=== PATIENT | male | born 1965 | race Asian ===

== ENCOUNTER 2019-05-11 12:04 | Inpatient (IN) | payer OTHER ==
[2019-05-11 12:25] LABS: ABS Eosinophils 0.1 10^3/ul (0-0.6); ABS Lymphocytes 2.3 10^3/ul (1.0-4.8); ABS Monocytes 0.5 10^3/ul (0-0.8); ABS Neutrophils 8.7 10^3/ul (1.5-7.7); Hematocrit 43 % (42-52); Hemoglobin 14.1 g/dL (14.0-18.0); Lymphocyte % 19.8 %; Mean Corpuscular HGB Conc 33 g/dL (31-36); Mean Corpuscular Hemoglobin 30 pg (27-31); Mean Corpuscular Volume 90 fL (80-94); Platelet Count 224 10^3/uL (150-450); Red Blood Count 4.74 10^6 /uL (4.18-5.48); Red Cell Distribution Width 13 % (10-15); White Blood Count 11.6 10^3/uL (3.5-10.8)
--- NOTE | 2019-05-11 12:30 | ED ---
HPI Chest Pain - HPI Summary HPI Summary: This patient is a 54 year old M presenting to ED with a chief complaint of midsternal chest pain that radiates to the back since last night. Patient is slight short of breath, but denies nausea, vomiting, diaphoresis, diarrhea, constipation, past medical history of heart problems, or any recent travel. The patient rates the pain 2/10 in severity. Symptoms aggravated by nothing. Symptoms alleviated by nothing. On initial exam, patient states he does not smoke tobacco. Home Medications Medication Instructions Recorded Confirmed Type Sildenafil Citrate [Viagra] 100 mg PO DAILY 09/21/16 09/28/16 History - History of Current Complaint Chief Complaint: EDChestPainROMI Time Seen by Provider: 05/11/19 12:13 Hx Obtained From: Patient Onset/Duration: Started Hours Ago - Since last night, Still Present Timing: Constant, Lasting Hours - Since last night Initial Severity: Moderate Current Severity: Moderate Pain Intensity: 2 Pain Scale Used: 0-10 Numeric Chest Pain Location: Mid Sternal Chest Pain Radiates: Yes Chest Pain Radiates To:: Back Aggravating Factor(s): Nothing Alleviating Factor(s): Nothing Associated Signs and Symptoms: Positive: Negative - Diarrhea, constipation, Chest Pain, Shortness of Breath. Negative: Diaphoresis, Nausea, Vomiting - Allergy/Home Medications Allergies/Adverse Reactions: Allergies Allergy/AdvReac Type Severity Reaction Status Date / Time No Known Allergies Allergy Verified 05/11/19 12:11 Home Medications: Home Medications NK [No Home Medications Reported] 05/11/19 [History Confirmed 05/11/19] PMH/Surg Hx/FS Hx/Imm Hx Cardiovascular History: Denies: Hx Congenital Heart Disease, Hx Congestive Heart Failure, Hx Coronary Artery Disease History: Reports: Other Problems/Disorders - Erectile dysfunction - Surgical History Surgery Procedure, Year, and Place: Left tympanoplasty with temporalis fascia underlay medial graft. 01/06/02 at [facility] [place]. Infectious Disease History: No Infectious Disease History: Denies: Traveled Outside the [place] in Last 30 Days - Family History Known Family History: Negative: Cardiac Disease, Hypertension, Diabetes - Social History Alcohol Use: None Hx Substance Use: No Substance Use Type: Reports: None Hx Tobacco Use: Yes Smoking Status (MU): Current Some Day Smoker Review of Systems Negative: Skin Diaphoresis Positive: Chest Pain Positive: Shortness Of Breath - Mild Gastrointestinal: Negative - Constipation Negative: Vomiting, Diarrhea, Nausea All Other Systems Reviewed And Are Negative: Yes Physical Exam - Summary Physical Exam Summary: VITAL SIGNS: Reviewed. GENERAL: Patient is a thin male who is lying comfortable in the stretcher. Patient is not in any acute respiratory distress. HEAD AND FACE: No signs of trauma. No ecchymosis, hematomas or skull depressions. No sinus tenderness. EYES: PERRLA, EOMI x 2, No injected conjunctiva, no nystagmus. EARS: Hearing grossly intact. Ear canals and tympanic membranes are within normal limits. MOUTH: Oropharynx within normal limits. NECK: Supple, trachea is midline, no adenopathy, no JVD, no carotid bruit, no c- spine tenderness, neck with full ROM. CHEST: Symmetric, no tenderness at palpation. LUNGS: Clear to auscultation bilaterally. No wheezing or crackles. CVS: Regular rate and rhythm, S1 and S2 present, no murmurs or gallops appreciated. ABDOMEN: Soft, non-tender. No signs of distention. No rebound, no guarding, and no masses palpated. Bowel sounds are normal. EXTREMITIES: FROM in all major joints, no edema, no cyanosis or clubbing. NEURO: Alert and oriented x 3. No acute neurological deficits. Speech is normal and follows commands. SKIN: Dry and warm. Triage Information Reviewed: Yes Vital Signs On Initial Exam: Initial Vitals Temp Pulse Resp BP Pulse Ox 98.0 F 81 18 120/71 97 05/11/19 12:09 05/11/19 12:09 05/11/19 12:09 05/11/19 12:09 05/11/19 12:09 Vital Signs Reviewed: Yes Procedures - Sedation Patient Received Moderate/Deep Sedation with Procedure: No Diagnostics - Vital Signs Vital Signs Temp Pulse Resp BP Pulse Ox 05/11/19 12:09 98.0 F 81 18 120/71 97 - Laboratory Result Diagrams: 05/12/19 05:45 05/12/19 05:45 Lab Statement: Any lab studies that have been ordered have been reviewed, and results considered in the medical decision making process. - Radiology CXR Radiology Interpretation Completed By: Radiologist Summary of Radiographic Findings: No acute cardiopulmonary process by radiograph. Dr. Portillo has reviewed this radiology report. - EKG 1206 Cardiac Rate: NL - 80 BPM EKG Rhythm: Sinus Rhythm Summary of EKG Findings: An EKG at 1206 revealed NSR at 80 BPM, slight ST elevations in II and aVF. Q waves in II, III, aVF. ST depressions in V2-V5. STEMI. Dr. Portillo has reviewed and interpreted this EKG. NOTE: EKG was taken at 1206 not 1106 as indicated on the EKG printout which is incorrect as the EKG machine was not yet adjusted to accomodate daylight savings time adjustment from last night. 1254 Cardiac Rate: NL - 77 BPM EKG Rhythm: Sinus Rhythm Summary of EKG Findings: An EKG at 1254 revealed NSR at 77 BPM, ST elevations in II, III, and aVF without reciprocal changes. STEMI. Dr. Portillo has reviewed and interpeted this EKG. NOTE: EKG was taken at 1254 not 1154 as indicated on the EKG printout which is incorrect as the EKG machine was not yet adjusted to accomodate daylight savings time adjustment from last night. Re-Evaluation - Re-Evaluation First Eval Re-Evaluation Time: 12:54 Comment: STEMI called at 1254. Second Eval Re-Evaluation Time: 13:01 Comment: Discussed results with patient. Patient agrees to go to [facility] with Dr. Hernandez. Patient states his last Viagra was one month ago and now reports that he is a smoker. Third Eval Re-Evaluation Time: 13:15 Comment: Evaluated patient with Dr. Hernandez at bedside. Patient taken up to [facility]. Chest Pain Course/Dx - Course Assessment/Plan: This patient is a 54 year old M presenting to ED with a chief complaint of midsternal chest pain that radiates to the back since last night. Patient is slight short of breath, but denies nausea, vomiting, diaphoresis, diarrhea, constipation, past medical history of heart problems, or any recent travel. The patient rates the pain 2/10 in severity. Symptoms aggravated by nothing. Symptoms alleviated by nothing. On the initial exam, patient states he does not smoke tobacco. In the ED course the patient was placed in a radiation monitor, IV access was obtained, IV fluids started. He was given Aspirin for the CP. Past medical records reviewed. 1st EKG at 12:06: Sinus rhythm with Q waves in lead II, II and AVF. It seems that it also has minimal ST elevations in the same leads. Patient report slight pain 2/10. Denies any diaphoresis, nausea or vomiting. He seems very comfortable. Blood test w/o a significant abnormality except for WBCs 11.6, glucose 164, AST is 148, total CPK 2330, CK- MB 294, and troponin 11.47. I paged Dr. Herrera cardiology director international. He reports the EKG is border line however troponin is positive therefore he recommends calling STEMI. The patient was given brilinta, heparin, and nitroglycerin. Patient reports that the last time he took Viagra was 1 month ago. Repeated a second EKG and is unchanged from the previous one. Discussed the case with Dr. Hernandez and he will be taking the patient to the [facility]. Patient is hemodynamically stable. He is complaining of mild chest heaviness. - Chest Pain Differential Diagnosis/HQI/PQRI: Acute GA, ACS, Angina, CHF, Chest Wall, GI Disease, Lower Respiratory Infection, Pulmonary Edema - Diagnoses Provider Diagnoses: STEMI (ST elevation myocardial infarction) During the Visit The Following Alert/Code Occurred: STEMI - Provider Notifications Discussed Care Of Patient With: Jalen Herrera Time Discussed With Above Provider: 12:49 Instructed by Provider To: Other - Discussed patient case with Dr. Herrera, bandoleer packer, who read the patient's EKG and also called it a STEMI. At 1258, discussed patient case with Dr. Hernandez, interventionalist, who recommended Heparin and Brilinta and stated he will come see the patient in the ER. At 1315 , evaluated patient with Dr. Hernandez at bedside. Patient agrees to go to [facility] for cardiac cath. - Critical Care Time Critical Care Time: 30-74 min - 30 minutes. CCT is EXCLUSIVE of separately billable procedures. Discharge ED - Sign-Out/Discharge Documenting (check all that apply): Patient Departure - Admit - Discharge Plan Condition: Fair Disposition: ADMITTED TO [facility] - Billing Disposition and Condition Condition: FAIR Disposition: Admitted to [facility] - Attestation Statements Document Initiated by Scribe: Yes Documenting Scribe: Adama Zimmerman Provider For Whom Scribe is Documenting (Include Credential): Steven Portillo MD Scribe Attestation: IAdama, scribed for Steven Portillo MD on 05/12/19 at 0716. Scribe Documentation Reviewed: Yes Provider Attestation: The documentation as recorded by the scribe, Adama Zimmerman accurately reflects the service I personally performed and the decisions made by me, Steven Portillo MD Status of Scribe Document: Viewed
[2019-05-11 12:31] LABS: INR 1.07 (0.82-1.09)
[2019-05-11 12:40] LABS: ALT 32 U/L (7-52); AST 148 U/L (13-39); Albumin 4.1 g/dL (3.2-5.2); Albumin/Globulin Ratio 1.3 (1-3); Alkaline Phosphatase 84 U/L (34-104); Anion Gap 4 mmol/L (2-11); BUN/Creatinine Ratio 18.3 (8-20); Blood Urea Nitrogen 15 mg/dL (6-24); CO2 Carbon Dioxide 29 mmol/L (22-32); Chloride 102 mmol/L (101-111); EGFR African American 117.6 (>60); EGFR Non-African American 97.2 (>60); Globulin 3.1 g/dL (2-4); Glucose 164 mg/dL (70-100); Potassium 3.6 mmol/L (3.5-5.0); Sodium 135 mmol/L (135-145); Total Protein 7.2 g/dL (6.4-8.9)
[2019-05-11 12:44] LABS: CKMB ng/mL 294.3 ng/mL (0.6-6.3)
[2019-05-11 12:46] LABS: Troponin I 11.47 ng/mL (<0.03)
[2019-05-11] MEDS ORDERED: Aspirin 81 mg CHEW TAB* 81 MG TAB.CHEW PO ONE (12:47)
[2019-05-11] MEDS ORDERED: Heparin for STEMI(*) 5,000 UNITS/ML 1 ML VIAL IV ONE (12:56)
[2019-05-11] MEDS ORDERED: Ticagrelor* 90 MG TAB PO ONE (12:56)
[2019-05-11] MEDS ORDERED: NS 0.9% 1000 ML** 1,000 ML IV ONE (13:02)
[2019-05-11 13:06] LABS: Creatine Kinase 2330 U/L (10-223)
[2019-05-11] MEDS ORDERED: Nitroglycerin TAB 0.4 MG* 0.4 MG TAB ONE (13:06)
[2019-05-11] MEDS ORDERED: Nitroglycerin TAB 0.4 MG* 0.4 MG TAB SL ONE (13:08)
[2019-05-11] MEDS ORDERED: VERAPAMIL 2.5 MG/ML 2 ML VIAL ** 5 mg/2 ml ONE (13:22)
[2019-05-11] MEDS ORDERED: Heparin(*) 1000 UNIT/ML 10 ML VIAL CATH LAB IV ONE (13:22)
[2019-05-11] MEDS ORDERED: Heparin 2 UNITS/ML IVPREMIX* 2,000 ML IV ONE (13:23)
[2019-05-11] MEDS ORDERED: Lidocaine 1% INJ* 10 MG/ML 30 ML SDV ONE (13:23)
[2019-05-11] MEDS ORDERED: nitroGLYCERIN DRIP* 25,000 MCG/250 ML BTL ONE (13:23)
[2019-05-11] MEDS ORDERED: Iohexol 350 (CONTRAST) 200 ML MDV IV ONE ×2 (13:24→14:17)
[2019-05-11] MEDS ORDERED: fentaNYL* 50 MCG/ML 2 ML VIAL (100 MCG VIAL) ONE (13:34)
[2019-05-11] MEDS ORDERED: Midazolam* 1 MG/ML 5 ML VIAL (5 MG) ONE (13:35)
[2019-05-11] MEDS ORDERED: Bivalirudin(*) 250 MG VIAL ONE (13:55)
[2019-05-11] MEDS ORDERED: Norepinephrine VIAL* 1 MG/ML 4 ML VIAL ONE (14:17)
[2019-05-11] MEDS ORDERED: Acetaminophen TAB* 325 MG PO PRN (14:46)
[2019-05-11] MEDS ORDERED: Zolpidem TAB* 5 MG PO PRN (14:46)
[2019-05-11] MEDS ORDERED: Docusate CAP* 100 MG PO PRN (14:46)
[2019-05-11] MEDS ORDERED: Ondansetron INJ* 2 MG/ML VIAL IV PRN (14:46)
[2019-05-11] MEDS ORDERED: Nitroglycerin TAB 0.4 MG* 0.4 MG TAB SL PRN (14:46)
[2019-05-11] MEDS ORDERED: Atorvastatin* 80 MG TAB PO ONE (14:53)
[2019-05-11] MEDS ORDERED: NS 0.9% 1000 ML** 1,000 ML IV SCH (15:00)
[2019-05-11] MEDS ORDERED: Atorvastatin* 80 MG TAB ONE (15:07)
--- NOTE | 2019-05-11 16:52 | HP ---
CC: Dr. Anderson Anderson * ADMISSION HISTORY AND PHYSICAL: DATE OF ADMISSION: 05/11/19 CHIEF COMPLAINT: The patient with chest discomfort on and off since last night , but never completely going away. HISTORY OF PRESENT ILLNESS: The patient is a 54-year-old gentleman with no prior known cardiac history. Specifically, he denies any history of myocardial infarction, congestive heart failure, or significant heart rhythm disturbance. The patient stated that last night he was playing a game of dice with his friends and developed the onset of a lump like feeling in the center of his chest. With it, he became nauseated and weak. He eventually decided to go home. He felt somewhat better while driving, but while at home it got worse again. He had it on and off throughout the night, but never completely going away. Because of the symptoms persisting, he eventually decided to present to the emergency room. In the emergency room, he was seen by Dr. Steven Portillo. Dr. Portillo looked at the EKG and saw small Q waves in the inferior leads with question of borderline ST elevation inferiorly. He decided to speak with Cardiology about this and eventually called Dr. Jalen Herrera. Dr. Jalen Herrera told him that given the fact that the patient was young and still having symptoms he recommend calling it as a STEMI alert even though it had been well over 17 hours since the symptoms had started. A STEMI alert was called. When I arrived, the patient was still having mild symptoms albeit not severe. The patient had 2 EKGs performed with the first demonstrating the Q waves in II, III , aVF with question of mild ST segment elevation in aVF and in II, with slightly more in lead III. There was mild ST segment depression in V2. aVL also had slight flattening of the ST segment as did lead I. Repeat EKG done at 11:[address] segments were perhaps slightly improved. Of note, the patient had received heparin, aspirin, and Brilinta once Dr. Herrera told Dr. Portillo to call a STEMI alert. Of note, it should be noted the patient arrived at 12:04 p.m. (the time on the EKG machine obviously was not accurate). PAST MEDICAL HISTORY: Significant for erectile dysfunction for which he has taken Viagra before, but has not taken any in a month. Cardiac risk factors - the patient denied any history of hypertension and hyperlipidemia or diabetes. He has smoked for greater than 35 years. He has no family history of early heart disease. FAMILY HISTORY: Noncontributory for coronary artery disease. SOCIAL HISTORY: The patient smoked for greater than 35 years, but does not use illicit drugs. REVIEW OF SYSTEMS: Pertinent to proceeding emergently to the cardiovascular laboratory. The patient has no history of prior stroke or TIA. The patient has no history of hematochezia, hematemesis or hematuria. He has no history of kidney dysfunction and he does not have any allergy to contrast that he is aware of. PHYSICAL EXAMINATION GENERAL: When I saw the patient in the emergency room, it revealed a pleasant gentleman in only mild distress. VITAL SIGNS: Blood pressure 114/82 with a pulse of 73, respirations 27, O2 saturation 98%. HEENT: Conjunctivae are pink. Sclerae clear. Mouth revealed moist mucosa. NECK: Supple. No increased JVP. Carotid without bruit. LUNGS: Reveal no accessory muscle usage. There was a good excursion. There were no active rales, rhonchi, or wheezes appreciated. HEART: Revealed no visible heaves, no palpable heaves or thrills. Heart sounds were mildly diminished. No significant systolic or diastolic murmur. ABDOMEN: Soft, nontender, scaphoid in nature. EXTREMITIES: Without clubbing, cyanosis, darline pitting edema. Peripheral pulses were intact. Right radial pulses were strong. NEUROLOGIC: The patient alert and oriented with normal mentation. MUSCULOSKELETAL: The patient moved all extremities appropriate. PSYCHOLOGICAL: The patient with appropriate affect. DIAGNOSTIC STUDIES/LAB DATA: Laboratory results reveal a white count of 11,600 , hemoglobin and hematocrit 14.1 and 43, platelet count of 224,000. INR 1.07. Sodium 135, potassium 3.6, chloride 102, bicarb 29, BUN and creatinine of 15 and 0.8, glucose 164. SGOT 148. Total CPK 2330, MB was 294.3, troponin was 11.47. B-natriuretic peptide was 61. Chest x-ray report revealed no acute pathology. OVERALL ASSESSMENT: Mr. Diaz presents now with a stuttering inferior posterior myocardial infarction since 7 p.m. last night with symptoms that waxed and waned, but never completely went away. Clearly given the fact that his CPK is already in the 2000 range, he has had myocardial damage. He still has symptoms and he has not queued out with preserved R-waves present. As such, we will proceed to the cardiovascular laboratory emergently and adjust management pending results. He has appropriately been given heparin, Brilinta, and aspirin. He did receive 1 nitroglycerin after stating that his last dose of Viagra was greater than a month ago. Further management will be made pending the results of the cardiac catheterization. [id number] #: [id number] MTDD
[2019-05-11 20:14] LABS: CKMB ng/mL > 297.0 ng/mL (0.6-6.3); Troponin I > 81.00 ng/mL (<0.03)
[2019-05-11] MEDS: Metoprolol Tartrate TAB* 25 MG PO SCH (21:15)
[2019-05-11] MEDS: Ticagrelor* 90 MG TAB PO SCH (21:28)
[2019-05-11] MEDS: NS 0.9% 1000 ML** 1,000 ML IV SCH (21:29)
[2019-05-11 21:48] LABS: Creatine Kinase 3284 U/L (10-223)
[2019-05-11 22:35] LABS: Urine Appearance Clear; Urine Bacteria Absent (Absent); Urine Bilirubin Negative (Negative); Urine Blood Negative (Negative); Urine Color Yellow; Urine Glucose Negative (Negative); Urine Ketones Negative (Negative); Urine Nitrite Negative (Negative); Urine Protein Negative (Negative); Urine Red Blood Cell Absent (Absent); Urine Specific Gravity 1.039 (1.010-1.030); Urine Urobilinogen Negative (Negative); Urine White Blood Cell Absent (Absent)
[2019-05-12 01:21] LABS: CKMB ng/mL 190.9 ng/mL (0.6-6.3)
[2019-05-12 01:24] LABS: Troponin I 71.36 ng/mL (<0.03)
[2019-05-12] MEDS: NS 0.9% 1000 ML** 1,000 ML IV SCH (01:27)
[2019-05-12 01:31] LABS: Creatine Kinase 2383 U/L (10-223)
[2019-05-12 05:57] LABS: ABS Eosinophils 0.2 10^3/ul (0-0.6); ABS Lymphocytes 2.4 10^3/ul (1.0-4.8); ABS Monocytes 0.6 10^3/ul (0-0.8); ABS Neutrophils 4.7 10^3/ul (1.5-7.7); Eosinophil % 2.2 %; Hematocrit 35 % (42-52); Hemoglobin 11.7 g/dL (14.0-18.0); Lymphocyte % 30.9 %; Mean Corpuscular HGB Conc 34 g/dL (31-36); Mean Corpuscular Hemoglobin 30 pg (27-31); Mean Corpuscular Volume 90 fL (80-94); Mean Platelet Volume 8.6 fL (7.4-10.4); Platelet Count 176 10^3/uL (150-450); Red Blood Count 3.87 10^6 /uL (4.18-5.48); Red Cell Distribution Width 13 % (10-15); White Blood Count 7.9 10^3/uL (3.5-10.8)
[2019-05-12 06:15] LABS: Albumin 3.1 g/dL (3.2-5.2); Albumin/Globulin Ratio 1.3 (1-3); BUN/Creatinine Ratio 17.6 (8-20); EGFR Non-African American 120.6 (>60); Globulin 2.3 g/dL (2-4); HDL Cholesterol 35.7 mg/dL; Potassium 3.8 mmol/L (3.5-5.0); Total Bilirubin 0.7 mg/dL (0.2-1.0); Total Protein 5.4 g/dL (6.4-8.9)
[2019-05-12 07:32] LABS: CKMB ng/mL 119.9 ng/mL (0.6-6.3)
[2019-05-12 07:33] LABS: Troponin I 43.58 ng/mL (<0.03)
[2019-05-12] MEDS: Metoprolol Tartrate TAB* 25 MG PO SCH ×3 (08:34→20:22)
--- NOTE | 2019-05-12 08:34 | ECHO ---
*[facility]* [place] [address] Fax #: [phone] Transthoracic Echocardiogram Patient: Barry Diaz : 1965 Study Date: 05/12/2019 Age: 54 Gender: M HR: 60 bpm Height: 62 in /157.5 cm BSA: 1.53 m^2 Weight: 117.8 lb /53.5 kg BMI: 21.6 kg/m^2 *Wage Adjuster: * Erika Trevizo [facility] *Referring Physician: * Miguelito Hernandez MD *Reading Physician: * Nito Castellanos MD Indications: Myocardial Infarction (new). History: Risk factors: Current tobacco use. Labs, prior tests, procedures, and surgery: Catheterization with coronary intervention. Performed during the current admission. Conclusions Summary: - Left ventricle: Systolic function is mildly reduced. The estimated ejection fraction is 40-45%. Hypokinesis of the basal-midinferolateral and inferior myocardium. - Right ventricle: Systolic function is low normal. Systolic pressure is within the normal range. - Mitral valve: There is trace to mild regurgitation. - Aortic valve: There is no evidence of stenosis. - Tricuspid valve: There is mild regurgitation. - Pericardium, extracardiac: There is no significant pericardial effusion. - Study data: No prior study is available for comparison. Study data: Transthoracic echocardiogram. Procedure: Transthoracic echocardiography was performed. Image quality was good. Complete 2D, spectral Doppler, and color flow Doppler. Location: ICU Patient status: Inpatient. Patient room number: ICU-04. No prior study is available for comparison. Rhythm: Normal sinus rhythm. Findings Left ventricle: The cavity size is normal. Wall thickness is normal. Systolic function is mildly reduced. The estimated ejection fraction is 40-45%. Regional wall motion abnormalities: Hypokinesis of the basal-midinferolateral and inferior myocardium. There is no consistent Doppler evidence of clinically significant diastolic dysfunction. Right ventricle: The cavity size is normal. Systolic function is low normal. Systolic pressure is within the normal range. Left atrium: The atrium is normal in size. Right atrium: The atrium is normal in size. Mitral valve: The leaflets are mildly thickened. There is no evidence of stenosis. There is trace to mild regurgitation. Aortic valve: The valve is trileaflet. The leaflets are mildly thickened. There is no evidence of stenosis. There is trace regurgitation. Tricuspid valve: The leaflets are normal thickness. There is no evidence of stenosis. There is mild regurgitation. Pulmonic valve: The leaflets are normal thickness. There is no evidence of stenosis. There is trace regurgitation. Aorta: Aortic root: The aortic root is appears normal. Ascending aorta: The ascending aorta is appears normal. Aortic arch: The aortic arch is appears normal. Pericardium: There is no significant pericardial effusion. Pulmonary arteries: The main pulmonary artery is normal-sized. Systolic pressure is within the normal range. Systemic veins: Inferior vena cava: The vessel is normal in size. There is (< 50%) respiratory change in the IVC dimension. Measurements Left ventricle Value Ref Aortic valve Value Ref DASIA, LAX 4.2 cm 4.2 - 5.8 Barbara diam, ED 2.0 cm ----- ESD, LAX 2.9 cm 2.5 - 4.0 Peak v, S 1.3 m/sec ----- FS, LAX 29 % 25 - 43 VTI, S 28.0 cm ----- PW, ED, LAX 0.9 cm 0.6 - 1.0 Mean grad, S 3.0 mm Hg ----- FS 29 % 25 - 43 Peak grad, S 7.0 mm Hg ----- Mid-wall FS 14 % LVOT/AV, VTI ratio 0.64 ----- PW, ED 0.9 cm 0.6 - 1.0 E', lat barbara, TDI (L) 9.5 cm/sec >=10.0 Mitral valve Value Ref E/e', lat barbara, 8 Peak E 0.79 m/sec ----- TDI Peak A 0.67 m/sec ----- E', med barbara, TDI (L) 6.5 cm/sec >=7.0 Decel time 165 ms --- -- E/e', med barbara, 12 Peak grad, D 2.5 mm Hg ----- TDI Peak E/A ratio 1.2 ----- E', avg, TDI 8.0 cm/sec E/e', avg, TDI 10 <=14 Pulmonic valve Value Ref Peak v, S 0.67 m/sec ----- LVOT Value Ref Peak grad, S 2.0 mm Hg ----- Peak harjit, S 0.73 m/sec VTI, S 18.0 cm Tricuspid valve Value Ref Peak grad, S 2 mm Hg TR peak v 2.3 m/sec <=2.8 Mean grad, S 1 mm Hg Peak RV-RA grad, S 21 mm Hg ----- Ventricular septum Value Ref Aortic root Value Ref IVS, ED 0.9 cm 0.6 - 1.0 Root diam 2.9 cm <3.8 Right ventricle Value Ref Ascending aorta Value Ref DASIA, LAX 2.9 cm AAo AP diam, S 3.1 cm ----- DASIA minor ax, A4C 3.2 cm 1.9 - 3.5 mid Aortic arch Value Ref Pressure, S 29 mm Hg Arch diam 2.1 cm ----- Left atrium Value Ref Decending aorta Value Ref AP dim, ES 3.30 cm 3.00 - Brianna peak harjit 0.7 m/sec ----- 4.00 ML dim, A4C 4.2 cm Pulmonary artery Value Ref SI dim, A4C 4.4 cm Pressure, S 27.0 mm Hg ----- Vol/bsa, ES, 1-p 27 ml/m^2 12 - 37 A4C Inferior vena cava Value Ref Vol/bsa, ES, A/L 30 ml/m^2 16 - 34 Diam 2.0 cm ----- Right atrium Value Ref SI dim, ES 4.1 cm 3.4 - 5.3 ML dim, ES, A4C 4.1 cm 2.6 - 4.4 Estimated RAP 8 mm Hg Legend: (L) and (H) bryan values outside specified reference range. Prepared and electronically signed by Nito Castellanos MD 05/12/2019 08:33
[2019-05-12] MEDS: Ticagrelor* 90 MG TAB PO SCH ×2 (08:39→20:22)
[2019-05-12] MEDS: Aspirin 81 mg CHEW TAB* 81 MG TAB.CHEW PO SCH (08:39)
--- NOTE | 2019-05-12 09:36 | PN ---
<Ivette Eaton - Last Filed: 05/12/19 09:56> Subjective Date of Service: 05/12/19 - late presenting inferior STEMI Interval History: Patient presented to [facility] due to ongoing c/o weakness, chest pain, diaphoresis on 05/11/2019 after having symptoms for 15 hours. Symptoms started at 7pm 2019 per patient. He denies recurrent chest pain since intervention. Does report feeling weak but he is contributing this not moving around. He denies dizziness, lightheadedness. He offers no further complaints. is at his bedside. Medications Active Medications: Acetaminophen (Tylenol Tab*) 650 mg PO Q4H PRN PRN Reason: PAIN - MILD Last Admin: 05/11/19 22:16 Dose: 650 mg Aspirin (Aspirin 81 Mg Chew Tab*) 81 mg PO DAILY [facility] Last Admin: 05/12/19 08:39 Dose: 81 mg Atorvastatin Calcium (Lipitor*) 80 mg PO 1700 [facility] Docusate Sodium (Colace Cap*) 100 mg PO DAILY PRN PRN Reason: CONSTIPATION Metoprolol Tartrate (Lopressor Tab*) 12.5 mg PO BID [facility] Last Admin: 05/12/19 08:34 Dose: Not Given Nitroglycerin (Nitroglycerin Tab 0.4 Mg*) 0.4 mg SL Q5M PRN PRN Reason: ANGINA Ondansetron HCl (Zofran Inj*) 4 mg IV Q4H PRN PRN Reason: NAUSEA Ticagrelor (Brilinta*) 90 mg PO BID [facility] Last Admin: 05/12/19 08:39 Dose: 90 mg Zolpidem Tartrate (Ambien Tab*) 5 mg PO BEDTIME PRN PRN Reason: INSOMNIA Objective Vital Signs: Temp Pulse Resp BP Pulse Ox 98.7 F 77 18 95/62 97 05/12/19 05:45 05/12/19 09:00 05/12/19 09:00 05/12/19 09:00 05/12/19 09:00 Oxygen Devices in Use Now: None Appearance: Sitting in chair, appears in NAD, a+o x3, cooperative with exam Ears/Nose/Mouth/Throat: NL Teeth, Lips, Gums, Clear Oropharnyx, Mucous Membranes Moist Neck: NL Appearance and Movements; NL JVP, Trachea Midline Respiratory: Symmetrical Chest Expansion and Respiratory Effort, Clear to Auscultation Cardiovascular: NL Sounds; No Murmurs; No JVD, RRR, No Edema Extremities: No Edema, - - right radial access site is non tender, 3+ radial pulse, no hematoma, good sensation. Skin: No Rash or Ulcers Neurological: Alert and Oriented x 3 Lines/Tubes/Other Access: Clean, Dry and Intact Peripheral IV Laboratory Results: 05/12/19 05:45 05/12/19 05:45 INR (Anticoag Therapy) 1.07 (0.82-1.09) 05/11/19 12:14 Total Bilirubin 0.70 mg/dL (0.2-1.0) 05/12/19 05:45 AST 162 U/L (13-39) H 05/12/19 05:45 ALT 39 U/L (7-52) 05/12/19 05:45 Alkaline Phosphatase 66 U/L (34-104) 05/12/19 05:45 CK-MB (CK-2) 119.9 ng/mL (0.6-6.3) H 05/12/19 07:01 B-Natriuretic Peptide 85 pg/mL (<=100) 05/12/19 05:45 Total Protein 5.4 g/dL (6.4-8.9) L 05/12/19 05:45 Albumin 3.1 g/dL (3.2-5.2) L 05/12/19 05:45 Globulin 2.3 g/dL (2-4) 05/12/19 05:45 Albumin/Globulin Ratio 1.3 (1-3) 05/12/19 05:45 Triglycerides 81 mg/dL 05/12/19 05:45 Cholesterol 132 mg/dL 05/12/19 05:45 LDL Cholesterol 80 mg/dL 05/12/19 05:45 HDL Cholesterol 35.7 mg/dL 05/12/19 05:45 05/11/19 05/11/19 05/12/19 12:14 19:43 00:50 Troponin I 11.47 H* > 81.00 H* 71.36 H* 05/12/19 07:01 Troponin I 43.58 H* Laboratory Results - last 24 hr 05/11/19 05/11/19 05/11/19 12:14 12:14 12:14 WBC 11.6 H RBC 4.74 Hgb 14.1 Hct 43 MCV 90 MCH 30 MCHC 33 RDW 13 Plt Count 224 MPV 8.0 Neut % (Auto) 74.7 Lymph % (Auto) 19.8 Story % (Auto) 4.2 Eos % (Auto) 1.0 Baso % (Auto) 0.3 Absolute Neuts (auto) 8.7 H Absolute Lymphs (auto) 2.3 Absolute Monos (auto) 0.5 Absolute Eos (auto) 0.1 Absolute Basos (auto) 0.0 Absolute Nucleated RBC 0.0 Nucleated RBC % 0.0 INR (Anticoag Therapy) 1.07 Sodium 135 Potassium 3.6 Chloride 102 Carbon Dioxide 29 Anion Gap 4 BUN 15 Creatinine 0.82 Est GFR ( Amer) 117.6 Est GFR (Non-Af Amer) 97.2 BUN/Creatinine Ratio 18.3 Glucose 164 H Calcium 9.0 Total Bilirubin 0.50 AST 148 H ALT 32 Alkaline Phosphatase 84 Total Creatine Kinase 2330 H CK-MB (CK-2) 294.3 H Troponin I 11.47 H* B-Natriuretic Peptide Total Protein 7.2 Albumin 4.1 Globulin 3.1 Albumin/Globulin Ratio 1.3 Triglycerides Cholesterol LDL Cholesterol HDL Cholesterol Urine Color Urine Appearance Urine pH Ur Specific [place] Urine Protein Urine Ketones Urine Blood Urine Nitrate Urine Bilirubin Urine Urobilinogen Ur Leukocyte Esterase Urine WBC (Auto) Urine RBC (Auto) Urine Bacteria Urine Glucose 05/11/19 05/11/19 05/11/19 12:14 15:48 19:43 WBC RBC Hgb Hct MCV MCH MCHC RDW Plt Count MPV Neut % (Auto) Lymph % (Auto) Story % (Auto) Eos % (Auto) Baso % (Auto) Absolute Neuts (auto) Absolute Lymphs (auto) Absolute Monos (auto) Absolute Eos (auto) Absolute Basos (auto) Absolute Nucleated RBC Nucleated RBC % INR (Anticoag Therapy) Sodium Potassium Chloride Carbon Dioxide Anion Gap BUN Creatinine Est GFR ( Amer) Est GFR (Non-Af Amer) BUN/Creatinine Ratio Glucose Calcium Total Bilirubin AST ALT Alkaline Phosphatase Total Creatine Kinase 3762 H 3284 H CK-MB (CK-2) > 297.0 H Troponin I > 81.00 H* B-Natriuretic Peptide 61 Total Protein Albumin Globulin Albumin/Globulin Ratio Triglycerides Cholesterol LDL Cholesterol HDL Cholesterol Urine Color Urine Appearance Urine pH Ur Specific [place] Urine Protein Urine Ketones Urine Blood Urine Nitrate Urine Bilirubin Urine Urobilinogen Ur Leukocyte Esterase Urine WBC (Auto) Urine RBC (Auto) Urine Bacteria Urine Glucose 05/11/19 05/12/19 05/12/19 22:00 00:50 05:45 WBC 7.9 RBC 3.87 L Hgb 11.7 L Hct 35 L MCV 90 MCH 30 MCHC 34 RDW 13 Plt Count 176 MPV 8.6 Neut % (Auto) 58.9 Lymph % (Auto) 30.9 Story % (Auto) 7.6 Eos % (Auto) 2.2 Baso % (Auto) 0.4 Absolute Neuts (auto) 4.7 Absolute Lymphs (auto) 2.4 Absolute Monos (auto) 0.6 Absolute Eos (auto) 0.2 Absolute Basos (auto) 0.0 Absolute Nucleated RBC 0.0 Nucleated RBC % 0.0 INR (Anticoag Therapy) Sodium Potassium Chloride Carbon Dioxide Anion Gap BUN Creatinine Est GFR ( Amer) Est GFR (Non-Af Amer) BUN/Creatinine Ratio Glucose Calcium Total Bilirubin AST ALT Alkaline Phosphatase Total Creatine Kinase 2383 H CK-MB (CK-2) 190.9 H Troponin I 71.36 H* B-Natriuretic Peptide Total Protein Albumin Globulin Albumin/Globulin Ratio Triglycerides Cholesterol LDL Cholesterol HDL Cholesterol Urine Color Yellow Urine Appearance Clear Urine pH 6.0 Ur Specific [place] 1.039 H Urine Protein Negative Urine Ketones Negative Urine Blood Negative Urine Nitrate Negative Urine Bilirubin Negative Urine Urobilinogen Negative Ur Leukocyte Esterase Negative Urine WBC (Auto) Absent Urine RBC (Auto) Absent Urine Bacteria Absent Urine Glucose Negative 05/12/19 05/12/19 05/12/19 05:45 05:45 07:01 WBC RBC Hgb Hct MCV MCH MCHC RDW Plt Count MPV Neut % (Auto) Lymph % (Auto) Story % (Auto) Eos % (Auto) Baso % (Auto) Absolute Neuts (auto) Absolute Lymphs (auto) Absolute Monos (auto) Absolute Eos (auto) Absolute Basos (auto) Absolute Nucleated RBC Nucleated RBC % INR (Anticoag Therapy) Sodium 138 Potassium 3.8 Chloride 110 Carbon Dioxide 25 Anion Gap 3 BUN 12 Creatinine 0.68 Est GFR ( Amer) 146.0 Est GFR (Non-Af Amer) 120.6 BUN/Creatinine Ratio 17.6 Glucose 98 Calcium 8.0 L Total Bilirubin 0.70 AST 162 H ALT 39 Alkaline Phosphatase 66 Total Creatine Kinase 1557 H CK-MB (CK-2) 119.9 H Troponin I 43.58 H* B-Natriuretic Peptide 85 Total Protein 5.4 L Albumin 3.1 L Globulin 2.3 Albumin/Globulin Ratio 1.3 Triglycerides 81 Cholesterol 132 LDL Cholesterol 80 HDL Cholesterol 35.7 Urine Color Urine Appearance Urine pH Ur Specific [place] Urine Protein Urine Ketones Urine Blood Urine Nitrate Urine Bilirubin Urine Urobilinogen Ur Leukocyte Esterase Urine WBC (Auto) Urine RBC (Auto) Urine Bacteria Urine Glucose Diagnostic Imaging: *[facility]* [place] [address] Fax #: [phone] Transthoracic Echocardiogram Patient: Barry Diaz : 1965 Study Date: 05/12/2019 Age: 54 Gender: M HR: 60 bpm Height: 62 in /157.5 cm BSA: 1.53 m^2 Weight: 117.8 lb /53.5 kg BMI: 21.6 kg/m^2 *Car Pilot: * Erika Trevizo [facility] *Referring Physician: * Miguelito Hernandez MD *Reading Physician: * Nito Castellanos MD Indications: Myocardial Infarction (new). History: Risk factors: Current tobacco use. Labs, prior tests, procedures, and surgery: Catheterization with coronary intervention. Performed during the current admission. Conclusions Summary: - Left ventricle: Systolic function is mildly reduced. The estimated ejection fraction is 40-45%. Hypokinesis of the basal-midinferolateral and inferior myocardium. - Right ventricle: Systolic function is low normal. Systolic pressure is within the normal range. - Mitral valve: There is trace to mild regurgitation. - Aortic valve: There is no evidence of stenosis. - Tricuspid valve: There is mild regurgitation. - Pericardium, extracardiac: There is no significant pericardial effusion. - Study data: No prior study is available for comparison. This report is only to be considered final once signed by the Provider(s) as displayed in the "<Electronically Signed by >" field (s). Absence of a signature indicates the report is in a draft status and still needs to be finalized. In the event this document was created by someone other than the signing Provider, the individual initiating the document will be listed in the "Entered by:" or "Dictated by:" busch. EKG Data: ECG's; 05/11/2019; Sinus rhythm rate [address] elevation in lead 2,3 and aVF. IVCD. + inferior Q waves 05/12/2019; Sinus rhythm rate 68 with < [address] elevation in lead 2,3 aVF with TWI consistent with recent infarct. + inferior Q waves. Telemetry reviewed from 05/10-05/12/19; sinus rhythm rate 60-70's with PVCs, there was a 12 beat count of wide complex tachycardia at 2300 on 05/11/2019 while patient was asleep. Assessment/Plan #1 Late presenting Inferior STEMI; patient is s/p PCI to mid to distal RCA with thrombus ( 2.5x15mm MARIANGEL utilized). Troponin peaked at >81 on 05/11/2019. LVEF 40- 45% on echocardiogram. He has not had recurrent chest pain since presentation. Unfortunately, due to hypotension we have not been able to start Lopressor therapy. His SBP is 95 however, he is c/o weakness. I have asked him to ambulate unit with the hope of improving blood pressure. he will need uninterrupted DAPT for a minimum of 12months time given presentation was STEMI. He is on ASA 81/day and Brilinta 90mg PO BID. Right radial access site is non tender to palpation, 3+ pulse and no hematoma. Will monitor in ICU another day given low BP and non sustained wide complex tachycardia last night. Will give 20MEQ K-Dur to keep K+>4. #2 h/o Tobacco use; patient reports consuming < 1/2 PPD. I reviewed with him and his the importance of smoking cessation for avoidance of recurrent SC, development of CVA and for prevention of instent restenosis. He seemed engaged and voiced ability to stop. Did not desire nicotine replacement. #3 Mild transaminitis; Likely due to above #1. Plts and INR normal suggestive of liver injury. On statin therapy will monitor AST/ALT closely. #4 Newly diagnosed ICM; LVEF 40-45%; due to above #1. Compensated on exam. Unable to start bblocker or ACEI therapy due to hypotension at this time #5 Disposition pending course, patient listed as a full code. Will monitor in ICU another day with the hope of starting bblocker therapy if BP allows. Will d/ w with primary interventionalist Dr. Hernandez Attending: Miguelito Hernandez <Miguelito Hernandez - Last Filed: 05/12/19 10:24> Medications Active Medications: Acetaminophen (Tylenol Tab*) 650 mg PO Q4H PRN PRN Reason: PAIN - MILD Last Admin: 05/11/19 22:16 Dose: 650 mg Aspirin (Aspirin 81 Mg Chew Tab*) 81 mg PO DAILY [facility] Last Admin: 05/12/19 08:39 Dose: 81 mg Atorvastatin Calcium (Lipitor*) 80 mg PO 1700 [facility] Docusate Sodium (Colace Cap*) 100 mg PO DAILY PRN PRN Reason: CONSTIPATION Metoprolol Tartrate (Lopressor Tab*) 12.5 mg PO BID [facility] Last Admin: 05/12/19 10:07 Dose: 12.5 mg Nitroglycerin (Nitroglycerin Tab 0.4 Mg*) 0.4 mg SL Q5M PRN PRN Reason: ANGINA Ondansetron HCl (Zofran Inj*) 4 mg IV Q4H PRN PRN Reason: NAUSEA Ticagrelor (Brilinta*) 90 mg PO BID [facility] Last Admin: 05/12/19 08:39 Dose: 90 mg Zolpidem Tartrate (Ambien Tab*) 5 mg PO BEDTIME PRN PRN Reason: INSOMNIA Objective Vital Signs: Temp Pulse Resp BP Pulse Ox 98.9 F 70 15 88/66 98 05/12/19 08:00 05/12/19 10:00 05/12/19 10:00 05/12/19 09:30 05/12/19 10:00 Laboratory Results: 05/12/19 05:45 05/12/19 05:45 INR (Anticoag Therapy) 1.07 (0.82-1.09) 05/11/19 12:14 Total Bilirubin 0.70 mg/dL (0.2-1.0) 05/12/19 05:45 AST 162 U/L (13-39) H 05/12/19 05:45 ALT 39 U/L (7-52) 05/12/19 05:45 Alkaline Phosphatase 66 U/L (34-104) 05/12/19 05:45 CK-MB (CK-2) 119.9 ng/mL (0.6-6.3) H 05/12/19 07:01 B-Natriuretic Peptide 85 pg/mL (<=100) 05/12/19 05:45 Total Protein 5.4 g/dL (6.4-8.9) L 05/12/19 05:45 Albumin 3.1 g/dL (3.2-5.2) L 05/12/19 05:45 Globulin 2.3 g/dL (2-4) 05/12/19 05:45 Albumin/Globulin Ratio 1.3 (1-3) 05/12/19 05:45 Triglycerides 81 mg/dL 05/12/19 05:45 Cholesterol 132 mg/dL 05/12/19 05:45 LDL Cholesterol 80 mg/dL 05/12/19 05:45 HDL Cholesterol 35.7 mg/dL 05/12/19 05:45 05/11/19 05/11/19 05/12/19 12:14 19:43 00:50 Troponin I 11.47 H* > 81.00 H* 71.36 H* 05/12/19 07:01 Troponin I 43.58 H* Assessment/Plan Points of Discussion: Patient has been seen and examined . Stable post PCI with mild to moderate LV systolic dysfunction segmental in nature with trace to mild mitral regurgitation. BP in borderline reange. Instituting low dose metoprolol tartrate as above. Agree with above assessment and recommendations by our nurse practioner Ivette Eaton.
[2019-05-12] MEDS ORDERED: Potassium Chlor TAB* 20 MEQ TAB.ER PO ONE (09:48)
[2019-05-12 10:04] LABS: Magnesium 1.8 mg/dL (1.9-2.7)
[2019-05-12] MEDS ORDERED: Magnesium Sulfate 2 GM IV* 2 GM/50 ML BAG IVPB ONE (10:22)
--- NOTE | 2019-05-12 15:14 | CATH ---
CC: Dr. Anderson Anderson; Dr. Jalen Herrera * CARDIAC CATHETERIZATION AND INTERVENTIONAL REPORT: DATE OF PROCEDURE: 05/11/19 - ROOM #ICU-04 INDICATION FOR PROCEDURE: The patient presents with a late presentation inferior wall myocardial infarction with borderline ST elevation most prominent in lead III with mild reciprocal changes, but persistent chest discomfort waxing and waning over the past greater than 17 hours with it still present. PROCEDURE: Coronary arteriography, thrombectomy and primary stenting of the distal right coronary artery utilizing a 2.5 x 16 mm long Synergy drug-eluting stent, postdilated 2.6 to 2.65 mm; left heart catheterization; left ventriculography. CONSENT: The patient was interviewed and examined in the emergency room where the risks and benefits were explained. He understood them and wished to proceed. APPROACH UTILIZED: The right radial artery was assessed by ultrasound for size and found to be acceptable for an approach. EQUIPMENT UTILIZED: 1. Right radial artery sheath was a 6-[place] Glidesheath Slender. 2. Diagnostic guidewire was a Lorenzo 260 length curved guidewire. 3. Diagnostic coronary catheter was a 5-[place] TIG4 catheter. 4. The guiding catheter utilized was a 6-[place] ART 4 curved catheter. 5. The interventional wire was an All Star 190 cm interventional wire. 6. The thrombectomy device was a 5.5 [place] Pronto V4 Extraction catheter. 7. The stent utilized with a 2.5 x 16 mm long Synergy drug-eluting stent. 8. The post stent deployment balloon angioplasty catheter was a 2.5 x 12 mm long NC Emerge. 9. The left heart catheterization catheter was a 5 [place] PIG short radial catheter. 10. The closure device utilized was a regular length Vasc Band. LABORATORY RESULTS PRE-CARDIAC CATHETERIZATION: Hemoglobin and hematocrit of 14.1 and 43, with a platelet count of 224,000. BUN 15, creatinine 0.82, sodium 135, potassium 3.6, chloride 102, bicarb 29. Troponin 11.47. The CK-MB was 294. MEDICATIONS GIVEN DURING THE PROCEDURE: The patient received a radial artery cocktail including 300 mcg of nitroglycerin and 3 mg of verapamil. The patient also had intracoronary nitroglycerin 100 mcg. The patient received an Angiomax bolus and Angiomax drip. The patient received 180 mg of Brilinta and 324 mg of aspirin and 3750 units of heparin in the emergency room. The patient received 1 % lidocaine for local anesthesia. 48 mcg of Levophed was given intravenously in addition to fluid boluses for transient hypotension. PROCEDURE: The patient was brought to the cardiovascular laboratory where a formal time-out was performed. He was prepped and draped in sterile fashion, and under ultrasound guidance, the right radial artery was cannulated and sheath was placed. The radial artery cocktail was administered. Coronary arteriography was performed. Following this, the decision was made to intervene into the distal right coronary artery. The diagnostic catheter was replaced with the guide catheter over exchange wire. The patient's ACT had been checked and found to be subtherapeutic, and as such, an Angiomax bolus and Angiomax drip was started. Guiding views were obtained and the interventional wire was passed across the lesion. The decision was made to use a thrombectomy device. This successfully removed a significant amount of thrombus burden. Following that, primary stenting was performed. Post stent deployment, high-pressure balloon inflations were performed. Following this, left heart catheterization was performed and left ventriculography was performed utilizing a total of 24 cc of Omnipaque dye at a rate of 12 cc per second. Of note, it was noted that the catheter most likely was intertwined in the mitral apparatus as the ventriculogram suggested 4+ mitral regurgitation. (Of note, a bedside echocardiogram was performed immediately on completion of the case to look at his mitral valve in addition to listening to his heart for any new murmur that would have suggested severe mitral regurgitation and neither were present. A formal echo will be performed within the next 24 hours). At the end of the case, the catheter and sheath were removed and hemostasis was obtained with a Vasc Band. The reverse Barbeau was a B. The radiation exposure included 30 minutes of fluoro time. The air kerma radiation was 633 milligray. The DAP radiation was 4001 microgray per meter squared. The total contrast used was 130 cc of Omnipaque dye. RESULTS: HEMODYNAMIC DATA: Central aortic pressure recorded at 99/65 with a mean at 82, left ventricular pressure was 90 over left ventricular end-diastolic pressure of 24. LEFT VENTRICULOGRAPHY: Performed in the GARCIA projection revealed that the catheter was intertwined in the mitral apparatus producing 4+ mitral regurgitation. The overall left ventricular systolic function showed excellent contractility of the anterior wall. At the apical region, the proximal and mid inferior wall was severely hypokinetic to akinetic. The overall EF was estimated at 45% ( may be higher than actual EF due to the mitral regurgitation) . CORONARY ARTERIOGRAPHY: A. Left coronary artery: 1. Left main - the left main was noted to have distal tapering of 30%. 2. Left anterior descending artery - the left anterior descending artery had mild luminal irregularities of 30% in the proximal to midportion. The midportion had an eccentric narrowing which appeared to be approximately 50% to 55% in its worst view, you can put that as the MONGOLIAN cranial projection. It appeared less severe in other views. It supplied a high first diagonal branch which had a ostial/proximal narrowing of 50% to 55%. This vessel trifurcated on the high anterolateral wall. The mid diagonal branch was a small caliber vessel with a 40% narrowing in its proximal portion, it bifurcated to a smaller caliber medial branch and a small caliber but long lateral branch extending into the lateral apical region. The continuation of the LAD supplied the apical region and onto the distal inferior wall. 3. Circumflex artery - a nondominant vessel supplying a very thin short first obtuse marginal branch followed by a moderate length bifurcating obtuse marginal branch. The continuation of the circumflex then supplied a mid obtuse marginal branch. Of note, there was collateral blood flow seen from the distal circumflex and the distal LAD to the right coronary artery. B. Right coronary artery - totally occluded in its mid to distal segment with suggestive evidence of thrombus burden in the area of obstruction. On reconstitution of the vessel after thrombectomy, there was a significant 80% hazy area in the distal vessel after the artery turned onto the inferior wall, before the PDA. There was also narrowing of 35% seen in the mid right coronary artery. The PDA itself was a narrow vessel with an ostial narrowing of 55% to 60%, again of note it is somewhat small in caliber. The continuation supplied multiple posterior left ventricular branches, which in general appeared to be somewhat small in caliber except for the last and second to last, which appeared to be at best 2 mm in caliber. INTERVENTION INTO THE DISTAL RIGHT CORONARY ARTERY: Successful reconstitution of totally occluded right coronary artery with thrombectomy and placement of a 2.5 x 16 mm long Synergy drug-eluting stent, postdilated 2.6 to 2.65 mm with ALICE-3 flow, no dissection seen, and 0% residual stenosis. OVERALL ASSESSMENT: Successful intervention into the distal LAD with reconstitution of the right coronary artery. At this point in time, dual antiplatelet therapy in addition to aggressive risk factor management with smoking cessation as well as high-dose statin therapy and careful institution of beta- symone therapy in light of the patient's low baseline blood pressure will be pursued. An echocardiogram will be obtained in the morning to look at overall LV function to serve as a baseline for upcoming reevaluation within the next 3 months to look at overall LV function. With respect to his residual coronary artery disease, medical management will be pursued and consideration at some point for outpatient stress test could be made or careful watching for presence of symptoms. [id number]/[facility] #: [id number] CAITLIN
[2019-05-12] MEDS: Atorvastatin* 80 MG TAB PO SCH (16:38)
--- NOTE | 2019-05-13 08:23 | PN ---
<Ivette Eaton - Last Filed: 05/13/19 08:37> Subjective Date of Service: 05/13/19 - late presenting inferior STEMI Interval History: Patient presented to [facility] due to ongoing c/o weakness, chest pain, diaphoresis on 05/11/2019 after having symptoms for 15 hours. Symptoms started at 7pm 2019 per patient. He denies recurrent chest pain since intervention. He has been up and ambulating the ICU halls with no complaints. States weakness has resolved. Continues to deny chest pain, sob , dizziness. Does have a rash noted on right forearm near prior peripheral IV site. Medications Active Medications: Acetaminophen (Tylenol Tab*) 650 mg PO Q4H PRN PRN Reason: PAIN - MILD Last Admin: 05/11/19 22:16 Dose: 650 mg Aspirin (Aspirin 81 Mg Chew Tab*) 81 mg PO DAILY [facility] Last Admin: 05/12/19 08:39 Dose: 81 mg Atorvastatin Calcium (Lipitor*) 80 mg PO 1700 [facility] Last Admin: 05/12/19 16:38 Dose: 80 mg Docusate Sodium (Colace Cap*) 100 mg PO DAILY PRN PRN Reason: CONSTIPATION Metoprolol Tartrate (Lopressor Tab*) 12.5 mg PO BID [facility] Last Admin: 05/12/19 20:22 Dose: 12.5 mg Nitroglycerin (Nitroglycerin Tab 0.4 Mg*) 0.4 mg SL Q5M PRN PRN Reason: ANGINA Ondansetron HCl (Zofran Inj*) 4 mg IV Q4H PRN PRN Reason: NAUSEA Ticagrelor (Brilinta*) 90 mg PO BID [facility] Last Admin: 05/12/19 20:22 Dose: 90 mg Zolpidem Tartrate (Ambien Tab*) 5 mg PO BEDTIME PRN PRN Reason: INSOMNIA Objective Vital Signs: Temp Pulse Resp BP Pulse Ox 97.9 F 69 18 95/65 97 05/13/19 07:54 05/13/19 08:02 05/13/19 08:02 05/13/19 08:02 05/13/19 08:02 Oxygen Devices in Use Now: None Appearance: Sitting in chair, appears in NAD, a+o x3, cooperative with exam Ears/Nose/Mouth/Throat: NL Teeth, Lips, Gums, Clear Oropharnyx, Mucous Membranes Moist Neck: NL Appearance and Movements; NL JVP, Trachea Midline Respiratory: Symmetrical Chest Expansion and Respiratory Effort, Clear to Auscultation Cardiovascular: NL Sounds; No Murmurs; No JVD, RRR, No Edema Extremities: No Edema, - - right radial access site is non tender, 3+ radial pulse, no hematoma, good sensation. Skin: No Rash or Ulcers Neurological: Alert and Oriented x 3 Lines/Tubes/Other Access: Clean, Dry and Intact Peripheral IV Laboratory Results: 05/12/19 05:45 05/12/19 05:45 INR (Anticoag Therapy) 1.07 (0.82-1.09) 05/11/19 12:14 Total Bilirubin 0.70 mg/dL (0.2-1.0) 05/12/19 05:45 AST 162 U/L (13-39) H 05/12/19 05:45 ALT 39 U/L (7-52) 05/12/19 05:45 Alkaline Phosphatase 66 U/L (34-104) 05/12/19 05:45 CK-MB (CK-2) 119.9 ng/mL (0.6-6.3) H 05/12/19 07:01 B-Natriuretic Peptide 85 pg/mL (<=100) 05/12/19 05:45 Total Protein 5.4 g/dL (6.4-8.9) L 05/12/19 05:45 Albumin 3.1 g/dL (3.2-5.2) L 05/12/19 05:45 Globulin 2.3 g/dL (2-4) 05/12/19 05:45 Albumin/Globulin Ratio 1.3 (1-3) 05/12/19 05:45 Triglycerides 81 mg/dL 05/12/19 05:45 Cholesterol 132 mg/dL 05/12/19 05:45 LDL Cholesterol 80 mg/dL 05/12/19 05:45 HDL Cholesterol 35.7 mg/dL 05/12/19 05:45 05/11/19 05/11/19 05/12/19 12:14 19:43 00:50 Troponin I 11.47 H* > 81.00 H* 71.36 H* 05/12/19 07:01 Troponin I 43.58 H* Laboratory Results - last 24 hr 05/12/19 05/12/19 05:45 05:45 Sodium 138 Potassium 3.8 Chloride 110 Carbon Dioxide 25 Anion Gap 3 BUN 12 Creatinine 0.68 Est GFR ( Amer) 146.0 Est GFR (Non-Af Amer) 120.6 BUN/Creatinine Ratio 17.6 Glucose 98 Calcium 8.0 L Magnesium 1.8 L Total Bilirubin 0.70 AST 162 H ALT 39 Alkaline Phosphatase 66 B-Natriuretic Peptide 85 Total Protein 5.4 L Albumin 3.1 L Globulin 2.3 Albumin/Globulin Ratio 1.3 Triglycerides 81 Cholesterol 132 LDL Cholesterol 80 HDL Cholesterol 35.7 Diagnostic Imaging: *[facility]* [place] [address] Fax #: [phone] Transthoracic Echocardiogram Patient: Barry Diaz : 1965 Study Date: 05/12/2019 Age: 54 Gender: M HR: 60 bpm Height: 62 in /157.5 cm BSA: 1.53 m^2 Weight: 117.8 lb /53.5 kg BMI: 21.6 kg/m^2 *[employer] Operator: * Erika Trevizo [facility] *Referring Physician: * Miguelito Hernandez MD *Reading Physician: * Nito Castellanos MD Indications: Myocardial Infarction (new). History: Risk factors: Current tobacco use. Labs, prior tests, procedures, and surgery: Catheterization with coronary intervention. Performed during the current admission. Conclusions Summary: - Left ventricle: Systolic function is mildly reduced. The estimated ejection fraction is 40-45%. Hypokinesis of the basal-midinferolateral and inferior myocardium. - Right ventricle: Systolic function is low normal. Systolic pressure is within the normal range. - Mitral valve: There is trace to mild regurgitation. - Aortic valve: There is no evidence of stenosis. - Tricuspid valve: There is mild regurgitation. - Pericardium, extracardiac: There is no significant pericardial effusion. - Study data: No prior study is available for comparison. This report is only to be considered final once signed by the Provider(s) as displayed in the "<Electronically Signed by >" field (s). Absence of a signature indicates the report is in a draft status and still needs to be finalized. In the event this document was created by someone other than the signing Provider, the individual initiating the document will be listed in the "Entered by:" or "Dictated by:" busch. EKG Data: ECG's; 05/11/2019; Sinus rhythm rate [address] elevation in lead 2,3 and aVF. IVCD. + inferior Q waves 05/12/2019; Sinus rhythm rate 68 with < [address] elevation in lead 2,3 aVF with TWI consistent with recent infarct. + inferior Q waves. 05/13/19; Sinus rhythm rate 69 with inferior Q waves and TWI c/w recent infarct. Telemetry reviewed Sinus rhythm rate 60-70. No recurrent NSVT since 05/11/19 Assessment/Plan #1 Late presenting Inferior STEMI; patient is s/p PCI to mid to distal RCA with thrombus ( 2.5x15mm MARIANGEL utilized). Troponin peaked at >81 on 05/11/2019. LVEF 40- 45% on echocardiogram. He has not had recurrent chest pain since presentation. He will need uninterrupted DAPT for a minimum of 12months time given presentation was STEMI. He is on ASA 81/day and Brilinta 90mg PO BID. Right radial access site is non tender to palpation, 3+ pulse and no hematoma. No recurrent NSVt since 05/11/19. Will transfer to today. #2 h/o Tobacco use; patient reports consuming < 1/2 PPD. I reviewed with him and his the importance of smoking cessation for avoidance of recurrent MO, development of CVA and for prevention of instent restenosis. He seemed engaged and voiced ability to stop. Did not desire nicotine replacement. #3 Mild transaminitis; Likely due to above #1. Plts and INR normal suggestive of liver injury. On statin therapy will update chemistry. #4 Newly diagnosed ICM; LVEF 40-45%; due to above #1. Compensated on exam. Will continue Lopressor 12.5mg PO BID. Unable to start ACEI due to SBP 85-95. #5 Disposition pending course, patient listed as a full code. Will transfer to . Points of Discussion: . Attending: Miguelito Hernandez <Miguelito Hernandez - Last Filed: 05/13/19 12:58> Medications Active Medications: Acetaminophen (Tylenol Tab*) 650 mg PO Q4H PRN PRN Reason: PAIN - MILD Last Admin: 05/11/19 22:16 Dose: 650 mg Aspirin (Aspirin 81 Mg Chew Tab*) 81 mg PO DAILY [facility] Last Admin: 05/13/19 08:53 Dose: 81 mg Atorvastatin Calcium (Lipitor*) 80 mg PO 1700 [facility] Last Admin: 05/12/19 16:38 Dose: 80 mg Docusate Sodium (Colace Cap*) 100 mg PO DAILY PRN PRN Reason: CONSTIPATION Metoprolol Tartrate (Lopressor Tab*) 12.5 mg PO BID [facility] Last Admin: 05/13/19 08:53 Dose: 12.5 mg Nitroglycerin (Nitroglycerin Tab 0.4 Mg*) 0.4 mg SL Q5M PRN PRN Reason: ANGINA Ondansetron HCl (Zofran Inj*) 4 mg IV Q4H PRN PRN Reason: NAUSEA Ticagrelor (Brilinta*) 90 mg PO BID [facility] Last Admin: 05/13/19 08:53 Dose: 90 mg Zolpidem Tartrate (Ambien Tab*) 5 mg PO BEDTIME PRN PRN Reason: INSOMNIA Objective Vital Signs: Temp Pulse Resp BP Pulse Ox 98.1 F 83 16 97/47 98 05/13/19 09:53 05/13/19 09:53 05/13/19 09:59 05/13/19 09:53 05/13/19 09:53 Laboratory Results: 05/12/19 05:45 05/13/19 08:35 INR (Anticoag Therapy) 1.07 (0.82-1.09) 05/11/19 12:14 Total Bilirubin 0.60 mg/dL (0.2-1.0) 05/13/19 08:35 AST 89 U/L (13-39) H 05/13/19 08:35 ALT 43 U/L (7-52) 05/13/19 08:35 Alkaline Phosphatase 82 U/L (34-104) 05/13/19 08:35 CK-MB (CK-2) 119.9 ng/mL (0.6-6.3) H 05/12/19 07:01 B-Natriuretic Peptide 85 pg/mL (<=100) 05/12/19 05:45 Total Protein 6.2 g/dL (6.4-8.9) L 05/13/19 08:35 Albumin 3.5 g/dL (3.2-5.2) 05/13/19 08:35 Globulin 2.7 g/dL (2-4) 05/13/19 08:35 Albumin/Globulin Ratio 1.3 (1-3) 05/13/19 08:35 Triglycerides 81 mg/dL 05/12/19 05:45 Cholesterol 132 mg/dL 05/12/19 05:45 LDL Cholesterol 80 mg/dL 05/12/19 05:45 HDL Cholesterol 35.7 mg/dL 05/12/19 05:45 05/11/19 05/11/19 05/12/19 12:14 19:43 00:50 Troponin I 11.47 H* > 81.00 H* 71.36 H* 05/12/19 07:01 Troponin I 43.58 H* Assessment/Plan Points of Discussion: The patient was seen and examined by me. We will be slowly adjusting medications as blood pressure allows. I agree with my nurse practioner, Ivette Eaton's, assessment and plan which we reviewed.
[2019-05-13] MEDS: Metoprolol Tartrate TAB* 25 MG PO SCH ×2 (08:53→21:52)
[2019-05-13] MEDS: Aspirin 81 mg CHEW TAB* 81 MG TAB.CHEW PO SCH (08:53)
[2019-05-13] MEDS: Ticagrelor* 90 MG TAB PO SCH ×2 (08:53→21:48)
[2019-05-13] MEDS ORDERED: diPHENhydraMINE PO* 50 MG PO ONE (09:21)
[2019-05-13 09:29] LABS: Albumin 3.5 g/dL (3.2-5.2); Albumin/Globulin Ratio 1.3 (1-3); BUN/Creatinine Ratio 14.7 (8-20); Calcium 8.3 mg/dL (8.6-10.3); EGFR African American 130.4 (>60); EGFR Non-African American 107.7 (>60); Globulin 2.7 g/dL (2-4); Potassium 3.9 mmol/L (3.5-5.0); Total Bilirubin 0.6 mg/dL (0.2-1.0); Total Protein 6.2 g/dL (6.4-8.9)
--- NOTE | 2019-05-13 13:17 | CATH ---
CARDIAC CATHETERIZATION REPORT: ADDENDUM: An error was made in the description in the overall assessment. It should read: Successful intervention into the distal right coronary artery with reconstitution of a totally occlud ed with thrombectomy and placement of the 2.5 x 16 mm stent post dilated 2.6 x 2.65 mm. [id number]/[facility] #: [id number]
[2019-05-13] MEDS: Atorvastatin* 80 MG TAB PO SCH (17:24)
[2019-05-14] MEDS ORDERED: Metoprolol Succinate XL TAB* 25 MG PO SCH (09:00)
[2019-05-14] MEDS: Aspirin 81 mg CHEW TAB* 81 MG TAB.CHEW PO SCH (09:06)
[2019-05-14] MEDS: Ticagrelor* 90 MG TAB PO SCH (09:06)
[2019-05-14 11:24] VITALS: BP 90/56
--- NOTE | 2019-05-15 01:28 | DS ---
CC: Dr. Anderson Anderson * DISCHARGE SUMMARY: DATE OF ADMISSION: 05/11/19 DATE OF DISCHARGE: 05/14/19 PRIMARY CARE PHYSICIAN: Dr. Anderson Anderson. ATTENDING PHYSICIAN: Dr. Miguelito Hernandez.* (DICTATED BY RODRIGO CLARKE NP) ADMITTING DIAGNOSES: 1. Late presenting inferior ST segment elevation myocardial infarction. 2. Ongoing tobacco use. 3. History of erectile dysfunction. DISCHARGE DIAGNOSES: 1. Late presenting inferior ST segment elevation myocardial infarction, status post 2.5 x 15 mm drug-eluting stent to mid to distal right coronary artery, LVEF per echocardiogram on 05/12/19 was 40% to 45% with hypokinesis of the basal to mid inferolateral and inferior myocardium. Troponin peaked at greater than 81 on 05/11/19. The patient is on aspirin 81 mg a day in combination with Brilinta 90 mg p.o. b.i.d., metoprolol 12.5, atorvastatin 80 mg. 2. Ongoing tobacco abuse. Reviewed the importance of smoking cessation for overall cardiovascular benefit. The patient is agreeable to smoking cessation, does not desire nicotine replacement. 3. Hyperlipidemia. LDL 80, goal LDL is less than 70 given newly found coronary artery disease, now on high-intensity statin therapy. We will need to repeat fasting lipid panel and liver function tests in 6 to 8 weeks' time. Please note he had mild transaminitis that was improving secondary to acute myocardial infarction. 4. Mild transaminitis. AST had trended down to 89 on 05/13/19. He should have repeat liver function tests in approximately 4 to 6 weeks' time, especially given that the he was placed on high-intensity statin therapy. 5. Ischemic cardiomyopathy, LVEF of 40% to 45%, compensated on physical examination, on metoprolol 12.5 mg p.o. daily. Unfortunately due to hypotension with complaints of weakness, we were unable to initiate GRACE inhibitor therapy. This will need to be followed closely in outpatient followup. PROCEDURES PERFORMED: The patient had an emergent cardiac catheterization by Dr. Miguelito Hernandez on 05/12/19; per cath report, a 6-Guatemalan sheath and catheter was inserted to the right radial artery. 1. Left main ostial tapering of 30%. 2. LAD; mild luminal irregularities of 30% in the proximal to mid portion. The mid portion had an eccentric narrowing, which appeared to be approximately 50% to 55% in the worst view. It supplied a high first diagonal branch which had an ostial to proximal narrowing of 50% to 55%. Mid diagonal branch was a small caliber vessel with 40% narrowing in the the proximal portion. 3. Left circumflex; nondominant vessel supplying very thin short first obtuse marginal branch followed by a moderate length bifurcating obtuse marginal branch. 4. Right coronary artery; totally occluded in its mid to distal segment with suggestive evidence of a thrombus burden in the area of obstruction. On reconstitution of the vessel after thrombectomy, there was a significant 80% hazy area of the distal vessel after the artery turned onto the inferior wall before the PDA. There was also narrowing of 35% seen in the mid right coronary artery. The PDA itself was a narrow vessel with an ostial narrowing of 55% to 60% stenosis; intervention to distal right coronary artery; successful reconstitution totally occluded right coronary artery with thrombectomy and placement of 2.5 x 16 mm drug eluting stent with ALICE flow III. No dissection, no residual stenosis. 5. Complications: None. COURSE OF HOSPITAL STAY: This is a pleasant 54-year-old male patient with a notable history of erectile dysfunction and ongoing tobacco abuse, who presented to [facility] on 05/11/19 due to ongoing complaints of substernal chest pain with associated weakness and diaphoresis. The patient states the symptomatology actually started on 05/10/19 at 7 p.m. The patient was having ongoing chest pain for nearly 15 hours before he presented to [facility]. While being evaluated, ECG was obtained which showed an acute inferior ST segment elevation with Q waves noted in the inferior leads. Decision was made to take the patient emergently to the general labor where he underwent successful thrombectomy and drug-eluting stent placement to distal RCA. Troponin peaked at greater than 81 on 05/11/19. LVEF was 40% to 45%. He was observed in the ICU. Unfortunately, due to his relative hypotension with complaints of weakness, medically managing his ischemic cardiomyopathy has been limited. He has been tolerating low dose metoprolol at 12.5 mg p.o. b.i.d. Thus decision was made to discharge him on metoprolol XL 12.5 mg a day. His systolic blood pressure had been ranging from 80 to 117 with periods of weakness when systolic blood pressure is less than 95. He did have mild transaminitis that clinically was improving on his chemistry panel from 05/13/19. At that time, AST was 89. AST peaked at 162 during this admission. He had an isolated occurrence of non-sustained VT in the evening of 05/11/19 with no reoccurrence once beta-symone therapy was initiated. He has been otherwise stable, asymptomatic, ambulating halls with no difficulty and has not had recurrent chest pain since presentation. Current vital signs: Temperature is 98.1, pulse 66, respirations 16, oxygenation 94% on room air, blood pressure 84/60. There is no morning blood work to review; however, his last blood work was 05/13/19. At that time, sodium was 136, potassium 3.9, creatinine 0.75. Again, troponin peaked greater than 81 and was trending down as of 05/12/19. LDL was 80. ECG on 05/14/19 was reviewed. He is in sinus rhythm, rate 63 with inferior Q waves and associated T-wave inversion consistent with recent infarct. The patient declined assistance for smoking cessation and states that he would be able to stop smoking on his own. Right radial access site is intact and nontender, no hematoma. He is stable to be discharged home. Outpatient blood work, the patient will need a repeat fasting lipid panel and liver function tests in 4 to 6 weeks' time. ACTIVITY RESTRICTION: The patient was advised to not drive until he is seen in followup. He was advised to not lift more than 5 to 10 pounds until further directed in followup. He was directed to not soak right radial access site wound. We will adjust cardiac rehab in followup. FOLLOWUP APPOINTMENTS: 1. The patient is to follow up with Dr. Anderson, PCP, in 7 to [address] Jalen Herrera, who will be the patient's new primary regional branch manager, on at 1:[address] Jarrod Miranda, Interventional Cardiology, on 05/20/19 at 3 p.m. for wound check and to ensure medication compliance. DISCHARGE CONDITION: Stable to be discharged home. DISCHARGE MEDICATIONS: 1. Atorvastatin 80 mg p.o. daily. 2. Metoprolol 12.5 mg a day. 3. Sublingual nitroglycerin 0.4 mg sublingual q.5 minutes p.r.n. 4. Brilinta [address] Miguelito Hernandez has personally seen and examined the patient and agrees with the above assessment and plan. RODRIGO CLARKE, NEUROSURGEON [id number]/[facility] #: [id number] [place]
== END 2019-05-14 15:07 | disposition home or self-care (01) | DRG 247 ==
LOC: ED 12:04 → CHICATH 13:24 → ICU 14:46 → MEDTELE 05-13 08:38
PROVIDERS: ADMIT Internal Medicine Cardiovascular Disease; ATTEND Internal Medicine Cardiovascular Disease
PROC: 02C03ZZ Extirpation of Matter from Coronary Artery, One Artery, Percutaneous Approach (ICD-10-PCS; 2019-05-11)
PROC: B2111ZZ Fluoroscopy of Multiple Coronary Arteries using Low Osmolar Contrast (ICD-10-PCS; 2019-05-11)
PROC: B2151ZZ Fluoroscopy of Left Heart using Low Osmolar Contrast (ICD-10-PCS; 2019-05-11)
PROC: 4A023N7 Measurement of Cardiac Sampling and Pressure, Left Heart, Percutaneous Approach (ICD-10-PCS; 2019-05-11)
PROC: 027034Z Dilation of Coronary Artery, One Artery with Drug-eluting Intraluminal Device, Percutaneous Approach (ICD-10-PCS; principal; 2019-05-11 13:30)
DX: I21.19 ST elevation (STEMI) myocardial infarction involving other coronary artery of inferior wall (principal); I25.5 Ischemic cardiomyopathy; R74.0 Nonspecific elevation of levels of transaminase and lactic acid dehydrogenase [LDH]; F17.210 Nicotine dependence, cigarettes, uncomplicated; I34.0 Nonrheumatic mitral (valve) insufficiency; N52.9 Male erectile dysfunction, unspecified; E78.5 Hyperlipidemia, unspecified; I95.9 Hypotension, unspecified
CPT/HCPCS: 36415; 71045; 80053; 80061; 81003; 82550; 82553; 83735; 83880; 84484; 85025; 85610; 87641; 93005; 93306; 99285; A9270-GY; C1725; C1757; C1769; C1876; C1887; C9606-RC; J0583; J1644; J2250; J3010; J3475